=== PATIENT | female | born 1940 | race Caucasian/White ===

== ENCOUNTER → 2017-01-22 | Outpatient (CLI) | payer MEDICARE, OTHER ==
[~2017-01-22] MED LIST: CITA20TA9 PO; CYAN10009 PO; LISI-625 PO; OMEP20CA10 PO; [UNRECOGNIZED DRUG - CODE] PO
== END ==
LOC: WC.BC 11:20
DX: Z12.31 Encounter for screening mammogram for malignant neoplasm of breast (principal)
CPT/HCPCS: 77063; G0202